=== PATIENT | female | born 1945 | race Caucasian/White ===

== ENCOUNTER → 2016-07-18 | Outpatient (CLI) | payer MEDICARE ==
--- NOTE | 2016-07-23 11:45 | Diagnostic Imaging Report ---
Indications: hip pain Findings: Two views of the left hip were obtained. No acute fracture is demonstrated. Alignment of the hip is within normal limits. Soft tissues are unremarkable. Impression: Negative examination of the hip.
== END | disposition home or self-care (01) ==
LOC: RAD 16:13
DX: R52 Pain, unspecified (principal); T14.8 Other injury of unspecified body region; W19.XXXA Unspecified fall, initial encounter; Y92.9 Unspecified place or not applicable
CPT/HCPCS: 73502

== ENCOUNTER → 2016-08-02 | Outpatient (CLI) | payer MEDICARE ==
--- NOTE | 2016-08-03 09:52 | Diagnostic Imaging Report ---
Indications: Pelvic and right hip pain since fall 2 weeks prior Technique: Coronal and axial T1-weighted fast spin-echo and STIR sequences of the pelvis, axial T1-weighted fast spin-echo plus coronal, sagittal, and axial proton density weighted fat saturated fast spin-echo sequences of the right hip performed without IV gadolinium administration. Findings: Comparison: Left hip radiographs 07/18/16 Imaged proximal aspects of both femurs, bilateral hip joints, bony pelvis, bilateral sacroiliac joints, pubic symphysis, imaged portions of lower lumbar spine appear intact. No fracture, other marrow signal or contour abnormality, dislocation, joint space widening or effusion, surrounding soft tissue edema/fluid/mass, or other acute changes are identified. The L5-S1 intervertebral disc demonstrates mild circumferential annular bulge with signal heterogeneity. The uterus, bilateral adnexal regions, collapsed urinary bladder, visualized portions of gastrointestinal tract, remainder visualized pelvic soft tissue anatomy unremarkable. IMPRESSION: No evidence of acute/recent injury or other acute pathology Mild degenerative disc disease
== END | disposition home or self-care (01) ==
LOC: MRI 14:34
DX: S70.00XA Contusion of unspecified hip, initial encounter (principal); X58.XXXA Exposure to other specified factors, initial encounter; Y93.9 Activity, unspecified; Y92.9 Unspecified place or not applicable

== ENCOUNTER 2017-03-07 12:52 | Outpatient (CLI) | payer MEDICARE, MEDICAID | END 2017-03-07 14:52 | disposition home or self-care (01) | LOC: RAD 12:52 | DX: M25.562 Pain in left knee (principal) ==